=== PATIENT | female | born 1995 | race African-American/Black ===

== ENCOUNTER 2016-12-17 17:51 | Emergency (ER) | payer SELFPAY ==
[~2016-12-17] VITALS: Ht 165.1 cm; Wt 126.0 kg
[2016-12-17] MEDS ORDERED: ACETAMINOPHEN WITH CODEINE 300/30MG TABLET PO STA (18:53)
[2016-12-17] MEDS ORDERED: KETOROLAC 30MG/ML VIAL IV STA (18:53)
[2016-12-17 19:21] LABS: BASOPHILS % 0.5 % (0.0-2.0); EOSINOPHILS % 0.5 % (0.0-5.0); HEMATOCRIT. 35.8 % (36.0-48.0); HEMOGLOBIN. 12.1 g/dL (12.0-16.0); LYMPHOCYTES % 26.3 % (20.0-50.0); MEAN CORPUSCULAR HEMOGLOBIN 28.6 pg (28.0-32.0); MEAN CORPUSCULAR VOLUME 84.5 fL (81.0-99.0); MEAN PLATELET VOLUME 8.2 fl (7.4-10.4); MONOCYTES % 8.7 % (2.0-8.0); PLATELET 233 x1000/uL (130-400); RED BLOOD CELL COUNT 4.23 mill/uL (4.2-5.4); RED CELL DISTRIBUTION WIDTH 14.2 % (11.6-14.6)
[2016-12-17 19:32] LABS: HCG SCREEN NEGATIVE
[2016-12-17 19:35] LABS: CARBON DIOXIDE 26 mEq/L (21-32); CHLORIDE 107 mEq/L (98-107)
[2016-12-17 20:31] VITALS: BP 107/56
== END 2016-12-17 23:48 | disposition home or self-care (01) ==
LOC: ER 23:07
DX: S00.83XA Contusion of other part of head, initial encounter (principal); V89.2XXA Person injured in unspecified motor-vehicle accident, traffic, initial encounter; Y93.89 Activity, other specified; Y99.8 Other external cause status; Y92.89 Other specified places as the place of occurrence of the external cause
CPT/HCPCS: 36415; 70486; 71010; 80053; 84703; 85025; 93005; 99285; Z7610